=== PATIENT | female | born 1990 | race Two or more races ===

== ENCOUNTER → 2019-07-15 | Emergency (ER) | payer MEDICAID, OTHER ==
[~2019-07-15] VITALS: Ht 170.2 cm; Wt 100.7 kg
[~2019-07-15] MED LIST: NITROFURANTOIN (MONO) 100 mg CAP PO ONE
[2019-07-15 12:53] VITALS: BP 130/77
[2019-07-15 13:15] LABS: Urine Bacteria FEW /hpf (None Seen); Urine Blood TRACE /uL (Negative); Urine Mucus FEW (None Seen); Urine Specific Gravity 1.005 (1.001-1.035); Urine WBC 386 /hpf (0 - 5)
== END | disposition left against medical advice (07) ==
LOC: ER 11:36
DX: O03.9 Complete or unspecified spontaneous abortion without complication (principal); O23.41 Unspecified infection of urinary tract in pregnancy, first trimester; O34.81 Maternal care for other abnormalities of pelvic organs, first trimester; N83.201 Unspecified ovarian cyst, right side; Z3A.01 Less than 8 weeks gestation of pregnancy
CPT/HCPCS: 36415; 76801; 81001; 84702